=== PATIENT | female | born 1965 | race Two or more races ===

== ENCOUNTER 2018-08-13 19:12 | Emergency (ER) | payer BC, OTHER ==
--- NOTE | 2018-08-13 20:47 | RAD REPORT ---
EXAM DESCRIPTION: CT - Head Brain Wo Cont - 08/13/2018 8:23 pm CLINICAL HISTORY: Blurred vision COMPARISON: None. TECHNIQUE: Axial 5 mm thick images of the head were obtained without IV contrast. All CT scans are performed using dose optimization technique as appropriate and may include automated exposure control or mA/KV adjustment according to patient size. FINDINGS: No intracranial hemorrhage, mass, edema or shift of mid-line structures. No acute infarcti on changes seen. No abnormal extra-axial fluid collections. Ventricles are normal. Physiologic calcif ications present. Mastoid air cells and visualized portions of the paranasal sinuses are clear. No acute bony findings. IMPRESSION: Negative non-contrast CT head examination.
--- NOTE | 2018-08-13 20:48 | RAD REPORT ---
EXAM DESCRIPTION: US - CP - 08/13/2018 8:18 pm CLINICAL HISTORY: Visual disturbances, stroke-like symptoms COMPARISON: None. TECHNIQUE: Real-time sonographic evaluation of both carotid systems was performed. Nuno scale and Do ppler interrogation were performed with waveform tracing bilaterally. FINDINGS: Normal high resistance waveforms are noted in both external carotid arteries. The common c arotid arteries and internal carotid arteries show normal low resistance waveforms. No significant plaque formation is seen. Peak systolic and end diastolic velocity values and the ICA/ CCA ratios are in the non-hemodynamically significant range. Antegrade flow seen in both vertebral arteries. Velocity values and ratios were recorded and are retained in the patient's imaging records. IMPRESSION: No significant atherosclerotic changes noted. No evidence of a hemodynamically significant stenosis.
--- NOTE | 2018-08-13 20:50 | RAD REPORT ---
EXAM DESCRIPTION: RAD - Chest Single View - 08/13/2018 8:22 pm CLINICAL HISTORY: Cough, blurred vision COMPARISON: None. TECHNIQUE: AP portable chest image was obtained 2017 hours . FINDINGS: Lungs are clear. Heart and vasculature are normal. No measurable pleural effusion and no p neumothorax. No acute bony abnormality seen. No acute aortic findings suspected. IMPRESSION: No acute cardiopulmonary process.
--- NOTE | 2018-08-13 20:52 | RAD REPORT ---
EXAM DESCRIPTION: MRI - Brain Wo Cont - 08/13/2018 8:45 pm CLINICAL HISTORY: Weakness, dizziness, right-sided blurred vision, COMPARISON: CT study same date TECHNIQUE: Sagittal T1-weighted images were obtained along with axial PD, heavily T2-weighted and T2 -FLAIR images. Axial DWI and ADC mapping sequences were also obtained along with coronal heavily T2-w eighted images. FINDINGS: No intracranial hemorrhage, mass or acute infarction. There is no edema or shift of midlin e structures. No extra-axial fluid collections. Nuno-matter/white matter junction is preserved. Signa l voids are seen as a normal finding in the major intracranial vessels. No globe or orbital content abnormality. Sella and suprasellar regions are normal. No tonsillar ectop ia. Mastoid air cells and paranasal sinuses are clear of acute findings. IMPRESSION: Negative non-contrast MRI of the Brain for acute or significant finding.
[2018-08-13 21:23] LABS: Absolute Lymphocytes (CBC) 1.3 K/uL (0.7-4.9); Absolute Monocytes 0.5 K/uL (0.1-1.3); Absolute Neutrophil 1.9 K/uL (1.8-8.0); Basophils % 0.4 % (0-1.3); Eosinophils % 3.6 % (0-4.4); Hematocrit 42.9 % (36.0-45.0); Lymphocytes % 33.6 % (15.3-44.8); MPV 8.2 fL (7.6-11.3); Monocytes % 13.2 % (3.3-12.3); RBC Red Blood Cell Count 4.89 M/uL (3.86-4.86)
[2018-08-13 21:27] LABS: Protime INR 1.04
[2018-08-13 21:41] LABS: ALT/SGPT 25 U/L (12-78); AST/SGOT 19 U/L (15-37); Alkaline Phosphatase 88 U/L (45-117); BUN Blood Urea Nitrogen 16 mg/dL (7-18); Bicarbonate 29 mmol/L (21-32); Bilirubin Direct 0.1 mg/dL (0-0.2); Bilirubin Total 0.4 mg/dL (0.2-1.0); Glucose Level 90 mg/dL (74-106); Magnesium 2.3 mg/dL (1.8-2.4); NT PRO-BNP 23 pg/mL (<125); Protein, Total 7.5 g/dL (6.4-8.2); Sodium Level 143 mmol/L (136-145); Troponin (Emerg Dept Use Only) < 0.02 ng/mL (0.0-0.045)
[2018-08-13] MEDS ORDERED: ASPIRIN 81 MG CHEWABLE TABLET ONE (21:46)
[2018-08-13] MEDS ORDERED: NA CHLORIDE 0.9% 1,000 ML ONE (21:48)
[2018-08-13] MEDS ORDERED: FOLIC ACID 5 MG/ML VIAL ONE (21:48)
--- NOTE | 2018-08-13 21:53 | EDPHYS ---
Physician Documentation [facility] Name: Carole Mercado Age: 53 yrs Sex: Female : 1965 Arrival Date: 08/13/2018 Time: 19:13 Bed 19 Private MD: ED Physician Alexandr Navarro HPI: 08/13 19:51 This 53 yrs old Female presents to ER via Ambulatory with complaints of Loss Of donna Vision. 19:51 The patient is experiencing blurred vision, decreased vision. Onset: The donna symptoms/episode began/occurred today. Duration: the symptoms are continuous. Aggravated by nothing. Alleviated by nothing. Associated signs and symptoms: Pertinent positives: headache, Pertinent negatives: None. Patient does not utilize any form of vision correction. Severity of symptoms: At their worst the symptoms were mild in the emergency department the symptoms are unchanged. Historical: - Allergies: 19:24 No Known Allergies; lp1 - Home Meds: 19:24 Synthroid Oral [Active]; lp1 - PMHx: 19:24 Hypothyroidism; lp1 - PSHx: 19:24 Thyroidectomy; lp1 - Immunization history:: Adult Immunizations up to date. - Social history:: Smoking status: Patient/guardian denies using tobacco. - Ebola Screening: : No symptoms or risks identified at this time. - Family history:: not pertinent. ROS: 19:51 Constitutional: Negative for fever, chills, and weight loss, ENT: Negative for injury, donna pain, and discharge, Neck: Negative for injury, pain, and swelling, Cardiovascular: Negative for chest pain, palpitations, and edema, Respiratory: Negative for shortness of breath, cough, wheezing, and pleuritic chest pain, Abdomen/GI: Negative for abdominal pain, nausea, vomiting, diarrhea, and constipation, Back: Negative for injury and pain, : Negative for injury, bleeding, discharge, and swelling, MS/Extremity: Negative for injury and deformity, Skin: Negative for injury, rash, and discoloration, Neuro: Negative for headache, weakness, numbness, tingling, and seizure, Psych: Negative for depression, anxiety, suicide ideation, homicidal ideation, and hallucinations, Allergy/Immunology: Negative for hives, rash, and allergies, Endocrine: Negative for neck swelling, polydipsia, polyuria, polyphagia, and marked weight changes, Hematologic/Lymphatic: Negative for swollen nodes, abnormal bleeding, and unusual bruising. 19:51 Eyes: Positive for blurry vision, vision loss, of the iris of right eye. Exam: 19:51 Constitutional: This is a well developed, well nourished patient who is awake, alert, donna and in no acute distress. Head/Face: Normocephalic, atraumatic. Eyes: Pupils equal round and reactive to light, extra-ocular motions intact. Lids and lashes normal. Conjunctiva and sclera are non-icteric and not injected. Cornea within normal limits. Periorbital areas with no swelling, redness, or edema. ENT: Nares patent. No nasal discharge, no septal abnormalities noted. Tympanic membranes are normal and external auditory canals are clear. Oropharynx with no redness, swelling, or masses, exudates, or evidence of obstruction, uvula midline. Mucous membranes moist. Neck: Trachea midline, no thyromegaly or masses palpated, and no cervical lymphadenopathy. Supple, full range of motion without nuchal rigidity, or vertebral point tenderness. No Meningismus. Chest/axilla: Normal chest wall appearance and motion. Nontender with no deformity. No lesions are appreciated. Cardiovascular: Regular rate and rhythm with a normal S1 and S2. No gallops, murmurs, or rubs. Normal PMI, no JVD. No pulse deficits. Respiratory: Lungs have equal breath sounds bilaterally, clear to auscultation and percussion. No rales, rhonchi or wheezes noted. No increased work of breathing, no retractions or nasal flaring. Abdomen/GI: Soft, non-tender, with normal bowel sounds. No distension or tympany. No guarding or rebound. No evidence of tenderness throughout. Back: No spinal tenderness. No costovertebral tenderness. Full range of motion. Skin: Warm, dry with normal turgor. Normal color with no rashes, no lesions, and no evidence of cellulitis. MS/ Extremity: Pulses equal, no cyanosis. Neurovascular intact. Full, normal range of motion. Neuro: Awake and alert, GCS 15, oriented to person, place, time, and situation. Cranial nerves II-XII grossly intact. Motor strength 5/5 in all extremities. Sensory grossly intact. Cerebellar exam normal. Normal gait. Psych: Awake, alert, with orientation to person, place and time. Behavior, mood, and affect are within normal limits. Vital Signs: 19:24 BP 147 / 87; Pulse 71; Resp 18; Temp 97.2(TE); Pulse Ox 99% on R/A; Weight 61.23 kg lp1 (R); Height 5 ft. 2 in. (157.48 cm); Pain 0/10; 20:50 BP 138 / 74; Pulse 79; Resp 17; Temp 97.8(O); Pulse Ox 99% on R/A; Pain 0/10; ed1 21:50 BP 142 / 72; Pulse 72; Resp 19; Temp 97.4(O); Pulse Ox 100% on R/A; Pain 0/10; ed1 22:27 BP 129 / 79; Pulse 80; Resp 17; Temp 97.3(O); Pulse Ox 100% on R/A; Pain 0/10; ed1 19:24 Body Mass Index 24.69 (61.23 kg, 157.48 cm) lp1 MDM: 19:30 Patient medically screened. [facility] 19:53 Data reviewed: vital signs, nurses notes, lab test result(s), EKG, radiologic studies, [facility] CT scan, MRI, plain films, ultrasound. 08/13 19:51 Order name: Basic Metabolic Panel; Complete Time: 21:52 [facility] 08/13 19:51 Order name: CBC with Diff; Complete Time: 21:52 [facility] 08/13 19:51 Order name: LFT's; Complete Time: 21:52 [facility] 08/13 19:51 Order name: Magnesium; Complete Time: 21:52 [facility] 08/13 19:51 Order name: NT PRO-BNP; Complete Time: 21:52 [facility] 08/13 19:51 Order name: PT-INR; Complete Time: 21:52 [facility] 08/13 19:51 Order name: Troponin (emerg Dept Use Only); Complete Time: 21:52 [facility] 08/13 19:51 Order name: XRAY Chest (1 view); Complete Time: 20:57 [facility] 08/13 19:51 Order name: CT Head Brain wo Cont; Complete Time: 20:57 [facility] 08/13 19:51 Order name: US Carotid Artery Bilateral; Complete Time: 20:57 [facility] 08/13 21:05 Order name: Sed Rate; Complete Time: 21:52 [facility] 08/13 21:05 Order name: CRP; Complete Time: 21:52 [facility] 08/13 21:59 Order name: Urine Dipstick--Ancillary (enter results) [facility] 08/13 21:59 Order name: Urine --Ancillary (enter results) [facility] 08/13 19:51 Order name: EKG; Complete Time: 19:52 [facility] 08/13 19:51 Order name: Cardiac monitoring; Complete Time: 20:06 [facility] 08/13 19:51 Order name: EKG - Nurse/Tech; Complete Time: 21:01 [facility] 08/13 19:51 Order name: IV Saline Lock; Complete Time: 21:10 [facility] 08/13 19:51 Order name: Labs collected and sent; Complete Time: 21:10 [facility] 08/13 19:51 Order name: O2 Per Protocol; Complete Time: 20:07 [facility] 08/13 19:51 Order name: O2 Sat Monitoring; Complete Time: 20:08 [facility] 08/13 19:51 Order name: Urine Dipstick-Ancillary (obtain specimen); Complete Time: 21:40 [facility] 08/13 20:07 Order name: Brain Wo Cont; Complete Time: 20:57 EDLA Administered Medications: 21:39 Drug: NS 0.9% 1000 ml Route: IV; Rate: 1 bolus; Site: right antecubital; ed1 22:31 Follow up: IV Status: Completed infusion; IV Intake: 1000ml ed1 21:39 Drug: foLIC Acid 1 mg Route: IVPB; Site: right antecubital; ed1 21:45 Follow up: Response: No adverse reaction; IV Status: Completed infusion; IV Intake: ed1 0.2ml 21:39 Drug: Aspirin 162 mg Route: PO; ed1 22:30 Follow up: Response: No adverse reaction ed1 Disposition: 08/13/18 21:52 Discharged to Home. Impression: Visual field defects. - Condition is Stable. - Discharge Instructions: Blurred Vision, Adult. - Medication Reconciliation Form, Thank You Letter, Antibiotic Education, Prescription Opioid Use form. - Follow up: Prerna Nair; When: Tomorrow; Reason: Recheck today's complaints, Re-evaluation by your physician. - Problem is new. - Symptoms are resolved. Signatures: Dispatcher [employer] EDMS Alexandr Navarro MD MD cha Riggs, Erika, RN RN ed1 Nena Castillo, RN RN lp1 Corrections: (The following items were deleted from the chart) 20:07 19:52 MR STROKE PROTOCOL+MRI.RAD.BRZ ordered. [facility] EDLA 22:29 21:52 08/13/2018 21:52 Discharged to Home. Impression: Visual field defects. Condition ed1 is Stable. Discharge Instructions: Blurred Vision, Adult. Forms are Medication Reconciliation Form, Thank You Letter, Antibiotic Education, Prescription Opioid Use. Follow up: Prerna Nair; When: Tomorrow; Reason: Recheck today's complaints, Re-evaluation by your physician. Problem is new. Symptoms are resolved. donna
--- NOTE | 2018-08-13 21:53 | ER ---
Nurse's Notes [facility] Name: Carole Mercado Age: 53 yrs Sex: Female : 1965 Arrival Date: 08/13/2018 Time: 19:13 Bed 19 Private MD: Diagnosis: Visual field defects Presentation: 08/13 19:20 Presenting complaint: Patient states: Blurred vision since Friday, seen by eye doctor lp1 on Friday and no findings; Vision to right eye seems to be blocked, "I can only see out of the corner of my right eye, the rest is blurry"; Denies any trauma, pain. Transition of care: patient was not received from another setting of care. Onset of symptoms was August 10, 2018. Risk Assessment: Do you want to hurt yourself or someone else? Patient reports no desire to harm self or others. Initial Sepsis Screen: Does the patient meet any 2 criteria? No. Patient's initial sepsis screen is negative. Does the patient have a suspected source of infection? No. Patient's initial sepsis screen is negative. Care prior to arrival: None. 19:20 Method Of Arrival: Ambulatory lp1 19:20 Acuity: MIGUEL 2 lp1 Historical: - Allergies: 19:24 No Known Allergies; lp1 - Home Meds: 19:24 Synthroid Oral [Active]; lp1 - PMHx: 19:24 Hypothyroidism; lp1 - PSHx: 19:24 Thyroidectomy; lp1 - Immunization history:: Adult Immunizations up to date. - Social history:: Smoking status: Patient/guardian denies using tobacco. - Ebola Screening: : No symptoms or risks identified at this time. - Family history:: not pertinent. Screenin:25 Abuse screen: Denies threats or abuse. Denies injuries from another. Nutritional lp1 screening: No deficits noted. Tuberculosis screening: No symptoms or risk factors identified. Fall Risk None identified. Assessment: 19:35 General: Appears in no apparent distress. Behavior is calm, cooperative. Pain: Denies ed1 pain. Neuro: Level of Consciousness is awake, alert, obeys commands, Oriented to person, place, time, situation. Cardiovascular: Denies chest pain, Heart tones S1 S2 present. Respiratory: Airway is patent Respiratory effort is even, unlabored, Respiratory pattern is regular, symmetrical, Breath sounds are clear bilaterally. GI: No signs and/or symptoms were reported involving the gastrointestinal system. : No signs and/or symptoms were reported regarding the genitourinary system. EENT: Reports blurred vision in right eye. Derm: Skin is intact, is healthy with good turgor, Skin is dry, Skin is normal, Skin temperature is warm. Musculoskeletal: Circulation, motion, and sensation intact. Range of motion: intact in all extremities. 20:50 Reassessment: Patient appears in no apparent distress at this time. Patient and/or ed1 family updated on plan of care and expected duration. Pain level reassessed. Patient is alert, oriented x 3, equal unlabored respirations, skin warm/dry/pink. Patient denies pain at this time. 21:50 Reassessment: Patient appears in no apparent distress at this time. No changes from ed1 previously documented assessment. Patient and/or family updated on plan of care and expected duration. Pain level reassessed. Patient is alert, oriented x 3, equal unlabored respirations, skin warm/dry/pink. Patient denies pain at this time. 22:27 Reassessment: Patient appears in no apparent distress at this time. Patient and/or ed1 family updated on plan of care and expected duration. Pain level reassessed. Patient is alert, oriented x 3, equal unlabored respirations, skin warm/dry/pink. Patient denies pain at this time. Vital Signs: 19:24 BP 147 / 87; Pulse 71; Resp 18; Temp 97.2(TE); Pulse Ox 99% on R/A; Weight 61.23 kg lp1 (R); Height 5 ft. 2 in. (157.48 cm); Pain 0/10; 20:50 BP 138 / 74; Pulse 79; Resp 17; Temp 97.8(O); Pulse Ox 99% on R/A; Pain 0/10; ed1 21:50 BP 142 / 72; Pulse 72; Resp 19; Temp 97.4(O); Pulse Ox 100% on R/A; Pain 0/10; ed1 22:27 BP 129 / 79; Pulse 80; Resp 17; Temp 97.3(O); Pulse Ox 100% on R/A; Pain 0/10; ed1 19:24 Body Mass Index 24.69 (61.23 kg, 157.48 cm) lp1 ED Course: 19:13 Patient arrived in ED. ds1 19:21 Triage completed. lp1 19:21 Arm band placed on right wrist. lp1 19:30 Alexandr Navarro MD is Attending Physician. donna 19:35 Nelli Mosqueda, RN is Primary Nurse. ed1 19:35 Awaiting ED provider evaluation. ed1 19:35 Patient has correct armband on for positive identification. Bed in low position. Call ed1 light in reach. Adult w/ patient. 20:17 US Carotid Artery Bilateral In Process Unspecified. EDMS 20:[address] via wheelchair. ed1 20:22 XRAY Chest (1 view) In Process Unspecified. EDMS 20:22 CT Head Brain wo Cont In Process Unspecified. EDMS 20:30 Patient moved to MRI via wheelchair. em2 20:45 Brain Wo Cont In Process Unspecified. EDMS 21:10 Initial lab(s) drawn, by ED staff, sent to lab. Urine collected: clean catch specimen, ed1 EKG done, by ED staff, reviewed by Alexandr Navarro MD. Inserted saline lock: 20 gauge in right antecubital area, using aseptic technique. Blood collected. 21:52 Prerna Nair MD is Referral Physician. donna 22:27 No provider procedures requiring assistance completed. IV discontinued, intact, ed1 bleeding controlled, No redness/swelling at site. Pressure dressing applied. Administered Medications: 21:39 Drug: NS 0.9% 1000 ml Route: IV; Rate: 1 bolus; Site: right antecubital; ed1 22:31 Follow up: IV Status: Completed infusion; IV Intake: 1000ml ed1 21:39 Drug: foLIC Acid 1 mg Route: IVPB; Site: right antecubital; ed1 21:45 Follow up: Response: No adverse reaction; IV Status: Completed infusion; IV Intake: ed1 0.2ml 21:39 Drug: Aspirin 162 mg Route: PO; ed1 22:30 Follow up: Response: No adverse reaction ed1 Intake: 21:45 IV: 0ml; Total: 0ml. ed1 22:31 IV: 1000ml; Total: 1000ml. ed1 Outcome: 21:52 Discharge ordered by . donna 22:27 Discharged to home ambulatory, with significant other. ed1 22:27 Condition: good 22:27 Discharge instructions given to patient, Instructed on discharge instructions, follow up and referral plans. Demonstrated understanding of instructions, follow-up care. 22:29 Patient left the ED. ed1 Signatures: Dispatcher [employer] Alexandr Rudolph MD MD cha Sanford, Demi ds1 Nelli Moqsueda RN RN ed1 Nena Castillo RN RN lp1 Alejandro Wills 2
[2018-08-13 23:23] LABS: Urine Blood 1+ (NEG); Urine Glucose NEGATIVE (NEG); Urine Protein NEGATIVE (NEG)
--- NOTE | 2018-08-14 05:55 | EKG ---
Test Date: 2018-08-13 Test Time: 20:57:06 Damage Appraiser: [id number] MEASUREMENT RESULTS: Intervals: Rate: 52 IL: 148 QRSD: 84 QT: 466 QTc: 433 Secretary: P: 65 IL: 148 QRS: 80 T: 63 INTERPRETIVE STATEMENTS: Sinus bradycardia with sinus arrhythmia Possible Anterior infarct, age undetermined Abnormal ECG No previous ECG available for comparison Electronically Signed On 08-14-18 05:54:53 CDT by Chris Casiano
== END 2018-08-13 22:29 | disposition home or self-care (01) ==
LOC: ER 19:12
DX: H53.40 Unspecified visual field defects (principal); E03.9 Hypothyroidism, unspecified
CPT/HCPCS: 36415; 70450; 70551; 71045; 80048; 80076; 81003; 81025; 83735; 83880; 84484; 85025; 85610; 85652; 86140; 93005; 93880; 96361; 96374; 99284; J7030